=== PATIENT | female | born 1980 | race African-American/Black ===

== ENCOUNTER 2016-08-02 16:43 | Emergency (ER) | payer OTHER ==
[~2016-08-02] VITALS: Ht 177.8 cm; Wt 115.1 kg
[2016-08-02 17:55] LABS: INFLUENZA A VIRAL ANTIGEN NEGATIVE; INFLUENZA B VIRAL ANTIGEN NEGATIVE
[2016-08-02] MEDS ORDERED: ZYRTEC10 M2 PO (18:54)
[2016-08-02] MEDS ORDERED: VERAPAMIL HCL120 MG PO (18:54)
[2016-08-02] MEDS ORDERED: FLEXERIL10 MG PO (18:54)
[2016-08-02] MEDS ORDERED: NORTRIPTYLINE H75 MG PO (18:54)
[2016-08-02] MEDS ORDERED: FLONASE16 G1 BOTH NARES (18:54)
[2016-08-02] MEDS ORDERED: MUCUS ER600 MG PO (18:55)
[2016-08-02 19:12] VITALS: BP 136/94
== END 2016-08-02 19:26 | disposition home or self-care (01) ==
LOC: EME 16:43
DX: J20.8 Acute bronchitis due to other specified organisms (principal); M26.601 Right temporomandibular joint disorder, unspecified; Z76.0 Encounter for issue of repeat prescription; I10 Essential (primary) hypertension; Z91.19 Patient's noncompliance with other medical treatment and regimen; J45.909 Unspecified asthma, uncomplicated; Z85.038 Personal history of other malignant neoplasm of large intestine; Z86.79 Personal history of other diseases of the circulatory system; Z88.5 Allergy status to narcotic agent; Z88.6 Allergy status to analgesic agent
CPT/HCPCS: 87502; 99281; 99284

== ENCOUNTER 2016-09-07 07:06 | Emergency (ER) | payer OTHER ==
[~2016-09-07] VITALS: Ht 177.8 cm; Wt 115.0 kg
[~2016-09-07 07:06] MED LIST: FLEXERIL10 MG PO; FLONASE16 G1 BOTH NARES; MUCUS ER600 MG PO; NORTRIPTYLINE H75 MG PO; VERAPAMIL HCL120 MG PO; ZYRTEC10 M2 PO
[2016-09-07] MEDS ORDERED: NAPROSYN500 MG PO (09:59)
[2016-09-07 10:24] VITALS: BP 136/108
== END 2016-09-07 10:25 | disposition home or self-care (01) ==
LOC: EME 07:06
DX: N64.4 Mastodynia (principal); N64.52 Nipple discharge; Z85.038 Personal history of other malignant neoplasm of large intestine; J45.909 Unspecified asthma, uncomplicated; I10 Essential (primary) hypertension; I73.00 Raynaud's syndrome without gangrene
CPT/HCPCS: 76641; 99281; 99283; J1885

== ENCOUNTER 2016-09-16 10:01 | Emergency (ER) | payer OTHER ==
[~2016-09-16] VITALS: Ht 177.8 cm; Wt 115.0 kg
[~2016-09-16 10:01] MED LIST changes: +NAPROSYN500 MG PO
[2016-09-16 10:55] LABS: EOSINOPHIL (%) 2.8 % (0-5); EOSINOPHIL COUNT 0.2 K/uL (0-0.3); HEMATOCRIT 40.5 % (36.0-46.0); IMMATURE GRANULOCYTE (%) 0.1 % (0.0-0.7); INSTRUMENT ABS NEUTROPHIL CT 3.6 K/uL; LYMPHOCYTE COUNT 2.4 K/uL (1.0-2.8); MCHC 32.8 G/DL (30.0-36.0); MCV 88.2 FL (83-99); MEAN PLAT.VOLUME 10.2 uM^3 (9.5-12.4); MONOCYTE (%) 8.1 % (3-12); MONOCYTE COUNT 0.6 K/uL (0-0.8); NEUTROPHIL (%) 52.9 % (45-76); NEUTROPHIL COUNT 3.6 K/uL (1.8-6.4); PLATELET COUNT 274 K/uL (156-360); RBC DIS.WIDTH-CV 13.8 % (11.8-14.6); RBC DIS.WIDTH-SD 44.4 % (39-53); RED BLOOD COUNT 4.59 M/uL (3.80-5.20); WHITE BLOOD COUNT 6.8 K/uL (4.1-10.2)
[2016-09-16 11:03] LABS: CHLORIDE 107 mEq/L (99-109)
[2016-09-16 11:04] LABS: POTASSIUM 3.9 mEq/L (3.7-5.4); SODIUM 137 mEq/L (136-147)
[2016-09-16 11:05] LABS: GLUCOSE 84 mg/dL (70-99)
[2016-09-16 11:07] LABS: ANION GAP 7 MEQ/L (2-14)
[2016-09-16 11:09] LABS: GFR ESTIMATE (CALCULATED) > 59 mL/min/
[2016-09-16 11:10] LABS: UREA NITROGEN (BUN) 13 mg/dL (9-23)
[2016-09-16 12:30] LABS: QUANTITATIVE HCG < 4.0 MIU/ML
[2016-09-16 13:15] LABS: ADD MIUA? NO; BILIRUBIN NEGATIVE; BLOOD NEGATIVE; COLOR YELLOW ((YELLOW)); GLUCOSE (STRIP) NEGATIVE; KETONES NEGATIVE; LEUKOCYTES NEGATIVE; NITRITE NEGATIVE; PROTEIN (STRIP) 30; SPECIFIC GRAVITY 1.019 (1.000-1.030); UCUL ADDED? NO; UROBILINOGEN 0.2 MG/DL (0.2-1.0)
[2016-09-16 14:09] VITALS: BP 138/79
== END 2016-09-16 14:10 | disposition home or self-care (01) ==
LOC: EME 10:01
DX: N64.4 Mastodynia (principal); J45.909 Unspecified asthma, uncomplicated; I10 Essential (primary) hypertension
CPT/HCPCS: 76642; 80048; 81003; 83605; 84702; 85025; 99281; 99284; J3010

== ENCOUNTER → 2016-10-28 | Outpatient (CLI) | payer OTHER ==
[~2016-10-28] VITALS: Ht 177.8 cm; Wt 108.8 kg
[~2016-10-28] MED LIST changes: +FLEXERIL5 MG PO
== END | disposition home or self-care (01) ==
LOC: AMB 07:27
DX: K31.7 Polyp of stomach and duodenum (principal); K22.10 Ulcer of esophagus without bleeding; Z85.038 Personal history of other malignant neoplasm of large intestine; R19.7 Diarrhea, unspecified; I10 Essential (primary) hypertension; I73.00 Raynaud's syndrome without gangrene; J45.909 Unspecified asthma, uncomplicated; Z80.0 Family history of malignant neoplasm of digestive organs; Z82.49 Family history of ischemic heart disease and other diseases of the circulatory system; Z80.41 Family history of malignant neoplasm of ovary; Z68.35 Body mass index [BMI] 35.0-35.9, adult; Z88.5 Allergy status to narcotic agent
CPT/HCPCS: 88305; J2250; J3010

== ENCOUNTER → 2017-01-05 | Outpatient (CLI) | payer OTHER | END | disposition home or self-care (01) | LOC: CDC 09:59 | DX: M67.432 Ganglion, left wrist (principal) | CPT/HCPCS: 93000 ==